=== PATIENT | female | born 1945 | race Caucasian/White ===

== ENCOUNTER → 2019-08-26 15:33 | Outpatient (CLI) | payer MEDICARE, OTHER, SELFPAY ==
--- NOTE | ~2019-08-26 | US_ITS ---
EXAMINATION: US pelvic complete w TV DATE: 08/26/2019 16:19 INDICATION: Abnormal uterine bleeding TECHNIQUE: Multiple transabdominal and endovaginal sonographic images of the pelvis were obtained. COMPARISON: None. FINDINGS: The uterus measures 7.2 x 3.3 x 4.8 cm. The endometrial complex measures 17 mm. The ovaries are not visualized however no adnexal abnormality is seen. There is normal vascular flow in the ovar ies. There is no free fluid in the pelvis. IMPRESSION: 1. Endometrial thickening which may be due to hyperplasia, polyp, or malignancy. Endometrial sampling is recommended. Reviewed, dictated and finalized at location A. [facility] [employer] PROFESSOR IMPRESSION: 1. Endometrial thickening which may be due to hyperplasia, polyp, or malignancy . Endometrial sampling is recommended.
== END ==
PROVIDERS: PCP Family Medicine; Visit Provider Family Medicine
DX: N93.9 Abnormal uterine and vaginal bleeding, unspecified (principal)
CPT/HCPCS: 76830; 76856

== ENCOUNTER → 2020-03-17 12:41 | Outpatient (CLI) | payer MEDICARE, OTHER, SELFPAY ==
--- NOTE | ~2020-03-17 | US_ITS ---
EXAMINATION: US pelvic complete w TV DATE: 03/17/2020 13:06 INDICATION: Endometrial hyperplasia. Abnormal uterine bleeding. Postmenopausal bleeding. Comparison:Ultrasound dated 08/26/2019 TECHNIQUE: Multiple transabdominal and endovaginal sonographic images of the pelvis performed. FINDINGS: The uterus measures 9.5 x 3.6 x 4.9 cm. The endometrial complex measures 1.4 cm. The ovaries are not visualized, likely atrophic. There is no free fluid in the pelvis. There are no abnormal masses seen on either side. IMPRESSION: 1. Thickened endomtrial complex. The differential diagnosis includes endometrial hyperplasia, polyp a nd carcinoma. Biopsy is recommended. Reviewed, dictated and finalized at location B. IMPRESSION: 1. Thickened endomtrial complex. The differential diagnosis includes endometria l hyperplasia, polyp and carcinoma. Biopsy is recommended.
== END ==
PROVIDERS: PCP Family Medicine; Visit Provider Obstetrics & Gynecology
DX: N85.00 Endometrial hyperplasia, unspecified (principal)
CPT/HCPCS: 76830; 76856

== ENCOUNTER → 2020-07-28 10:35 | Outpatient (CLI) | payer MEDICARE, OTHER, SELFPAY ==
--- NOTE | ~2020-07-28 | US_ITS ---
EXAMINATION: US pelvic complete w TV DATE: 07/28/2020 11:44 INDICATION: Postmenopausal bleeding TECHNIQUE: Multiple transabdominal and endovaginal sonographic images of the pelvis were obtained. COMPARISON: 03/17/2020 FINDINGS: The uterus measures 7.8 x 4.3 x 3.8 cm. The endometrial complex measures 12 mm mm in thickness. The ovaries are not visualized. There is no free fluid in the pelvis. IMPRESSION: 1. Persistent thickening of the endometrial complex which measures 12 mm. Differential remains endome trial hyperplasia, polyp or carcinoma. If this has not been previously worked up would recommend hyst eroscopy and biopsy. Reviewed, dictated and finalized at location B. F ANALYST IMPRESSION: 1. Persistent thickening of the endometrial complex which measures 12 mm. Diffe rential remains endometrial hyperplasia, polyp or carcinoma. If this has not be en previously worked up would recommend hysteroscopy and biopsy.
== END ==
PROVIDERS: PCP Family Medicine; Visit Provider Obstetrics & Gynecology
DX: N95.0 Postmenopausal bleeding (principal)
CPT/HCPCS: 76830; 76856